=== PATIENT | female | born 1940 | race Caucasian/White ===

== ENCOUNTER → 2016-10-06 | Outpatient (CLI) | payer OTHER ==
[~2016-10-06] MED LIST: BUSP10 PO; DULE200A INH; IBUP-1116 PO; MUCI600T PO
== END ==
LOC: PLAB 10:54
PROVIDERS: ATTEND Internal Medicine
DX: J40 Bronchitis, not specified as acute or chronic (principal)
CPT/HCPCS: 87070; 87205

== ENCOUNTER 2017-06-19 11:54 | Emergency (ER) | payer MEDICARE, OTHER ==
[~2017-06-19] VITALS: Ht 160 cm; Wt 75.0 kg
[2017-06-19] MEDS ORDERED: IOHEXOL 350 MG/ML 10 ML VIAL (for RAD DIAG) IVCONTRAST ONE (11:55)
[2017-06-19 11:56] VITALS: BP 152/74; PULSE 98; RESP 15; TEMP 97.4; O2SAT 95
--- NOTE | 2017-06-19 12:33 | PD ---
HPI Chief Complaint: GI Complaint Time Seen by Provider: 12:32 Travel History International Travel<30 days: No Contact w/Intl Traveler<30days: No Traveled to known affect area: No History of Present Illness HPI 77-year-old female presents the emergency department with sudden onset lower abdominal cramping with bright red blood per rectum which started yesterday afternoon approximately 3 PM. Patient has had some loose stools since that time with cramping. Patient has no history of fever, nausea, or vomiting. She states she did have a large meal yesterday at 1:00 which consisted of Thanksgiving type food. Her ate the same food and is not ill. Patient has never had blood from her rectum before. She denies rectal pain. She denies history of diverticulitis or hemorrhoids. She states she's had blood on the tissue as well as in the bowl. Her abdominal cramping is central suprapubic region. Denies flank pain. He has no history of colitis or Crohn's disease. Patient does see a black off worker for every five-year colonoscopies for colon polyps but no history of cancer. Currently her pain is 5 out of 10. She has had approximately 4 bowel movements since yesterday at 3 PM. She has no known drug allergies. PFSH Past Medical History Asthma: Yes Diminished Hearing: No ?: Not Past Surgical History Appendectomy: Yes Cholecystectomy: Yes Tonsillectomy: Yes Social History Alcohol Use: No Tobacco Use: No Substance Use: No Allergies-Medications (Allergen,Severity, Reaction): Coded Allergies: No Known Allergies (Verified Adverse Reaction, Unknown, 06/19/17) Reported Meds & Prescriptions Reported Meds & Active Scripts Active Reported Mucinex DM (Dextromethorphan-Guaifenesin) 30-600 Mg Tab 1 Tab PO BID PRN Alprazolam 0.25 Mg Tab 0.25 Mg PO Q8H PRN Dulera 120 Act Inh (Mometasone-Formoterol 120 Act Inh) 100-5 Mcg/Act Inh 2 Puff INH BID Review of Systems Except as stated in HPI: all other systems reviewed are Neg General / Constitutional: No: Fever Eyes: No: Visual changes HENT: No: Headaches Cardiovascular: No: Chest Pain or Discomfort Respiratory: No: Shortness of Breath Gastrointestinal: Positive: Diarrhea, Abdominal Pain, No: Nausea, Vomiting, Hematemesis, Hematochezia, Constipation, Changes in Bowel Habits, Indigestion, Dysphagia, Loss of Appetite Genitourinary: Positive: Pelvic Pain, No: Dysuria Musculoskeletal: No: Pain Skin: No Rash Neurologic: No: Weakness Psychiatric: No: Depression Endocrine: No: Polydipsia Hematologic/Lymphatic: No: Easy Bruising Physical Exam Narrative GENERAL: Patient is anxious and appears in mild distress. SKIN: Warm and dry. Normal color. Normal turgor. HEAD: Atraumatic. Normocephalic. EYES: Pupils equal and round. No scleral icterus. No injection or drainage. ENT: No nasal bleeding or discharge. Mucous membranes pink and moist. NECK: Trachea midline. Supple and nontender CARDIOVASCULAR: Regular rate and rhythm. RESPIRATORY: No accessory muscle use. Clear to auscultation. Breath sounds equal bilaterally. GASTROINTESTINAL: Abdomen soft, nonspecific suprapubic tenderness without rebound, nondistended. No point tenderness or guarding. Hepatic and splenic margins not palpable. No CVA tenderness. RECTAL: Patient is noted to have a skin tag at 12 o'clock position without obvious active hemorrhoids or fissure. Internal rectal exam is not performed. MUSCULOSKELETAL: Extremities without clubbing, cyanosis, or edema. No obvious deformities. NEUROLOGICAL: Awake and alert. No obvious cranial nerve deficits. Motor grossly within normal limits. Five out of 5 muscle strength in the arms and legs. Normal speech. PSYCHIATRIC: Appropriate mood and affect; insight and judgment normal. Data Data Last Documented VS Vital Signs Date Time Temp Pulse Resp B/P (MAP) Pulse Ox O2 Delivery O2 Flow Rate FiO2 06/19/17 13:02 86 16 94 Room Air 06/19/17 11:56 97.4 Orders Orders Complete Blood Count With Diff (06/19/17 12:41) Comprehensive Metabolic Panel (06/19/17 12:41) Lipase (06/19/17 12:41) Lactic Acid (06/19/17 12:41) Prothrombin Time / Inr (Pt) (06/19/17 12:41) Act Partial Throm Time (Ptt) (06/19/17 12:41) Urinalysis - C+S If Indicated (06/19/17 12:41) Ct Abd/Pel W Iv Contrast(Rout) (06/19/17 12:41) Iv Access Insert/Monitor (06/19/17 12:41) Ecg Monitoring (06/19/17 12:41) Oximetry (06/19/17 12:41) NPO (06/19/17 12:41) Morphine Inj (Morphine Inj) (06/19/17 12:45) Ondansetron Inj (Zofran Inj) (06/19/17 12:45) Sodium Chlor 0.9% 1000 Ml Inj (Ns 1000 M (06/19/17 12:41) Sodium Chloride 0.9% Flush (Ns Flush) (06/19/17 12:45) Iohexol 350 Inj (Omnipaque 350 Inj) (06/19/17 11:55) Labs Laboratory Tests Test 06/19/17 12:45 06/19/17 13:00 White Blood Count 6.3 TH/MM3 Red Blood Count 4.69 MIL/MM3 Hemoglobin 15.0 GM/DL Hematocrit 44.8 % Mean Corpuscular Volume 95.5 FL Mean Corpuscular Hemoglobin 31.9 PG Mean Corpuscular Hemoglobin Concent 33.4 % Red Cell Distribution Width 13.3 % Platelet Count 323 TH/MM3 Mean Platelet Volume 8.3 FL Neutrophils (%) (Auto) 70.2 % Lymphocytes (%) (Auto) 20.4 % Monocytes (%) (Auto) 7.3 % Eosinophils (%) (Auto) 1.4 % Basophils (%) (Auto) 0.7 % Neutrophils # (Auto) 4.4 TH/MM3 Lymphocytes # (Auto) 1.3 TH/MM3 Monocytes # (Auto) 0.5 TH/MM3 Eosinophils # (Auto) 0.1 TH/MM3 Basophils # (Auto) 0.0 TH/MM3 CBC Comment DIFF FINAL Differential Comment Prothrombin Time 10.4 SEC Prothromb Time International Ratio 0.9 RATIO Activated Partial Thromboplast Time 28.4 SEC Blood Urea Nitrogen 8 MG/DL Creatinine 0.50 MG/DL Random Glucose 111 MG/DL Total Protein 7.7 GM/DL Albumin 3.5 GM/DL Calcium Level 9.0 MG/DL Alkaline Phosphatase 88 U/L Aspartate Amino Transf (AST/SGOT) 21 U/L Alanine Aminotransferase (ALT/SGPT) 34 U/L Total Bilirubin 0.2 MG/DL Sodium Level 141 MEQ/L Potassium Level 3.8 MEQ/L Chloride Level 105 MEQ/L Carbon Dioxide Level 29.7 MEQ/L Anion Gap 6 MEQ/L Estimat Glomerular Filtration Rate 120 ML/MIN Lipase 166 U/L Urine Color YELLOW Urine Turbidity CLEAR Urine pH 5.0 Urine Specific [place] 1.006 Urine Protein NEG mg/dL Urine Glucose (UA) NEG mg/dL Urine Ketones NEG mg/dL Urine Occult Blood NEG Urine Nitrite NEG Urine Bilirubin NEG Urine Urobilinogen LESS THAN 2.0 MG/DL Urine Leukocyte Esterase NEG Urine RBC 0-3 /hpf Urine WBC 0-2 /hpf Urine Squamous Epithelial Cells 0-5 /hpf Urine Bacteria OCC /hpf Microscopic Urinalysis Comment CULT NOT INDICATED Lactic Acid Level 1.2 mmol/L [facility] Medical Decision Making Medical Screen Exam Complete: Yes Emergency Medical Condition: Yes Differential Diagnosis Abdominal pain. Bright red blood per rectum. Possible colitis. Hemorrhoids. Urinary tract infection. Narrative Course Patient is medically stable at time of exam. Labs ordered including CBC, CMP, lactic acid, lipase, urinalysis. Patient is given 2 mg morphine IV as well as 4 mg Zofran IV. Patient is given 1000 mL normal saline bolus IV. CT of the abdomen and pelvis with IV contrast is ordered. CBC is unremarkable. Coagulation studies are unremarkable. Abdominal pelvic CT showed: CONCLUSION: 1. Mild diverticulosis with no definite inflammatory change or wall thickening. 2. Status post cholecystectomy. 3. Mild hepatic steatosis. Urinalysis is within normal limits. Patient is felt to have a viral colitis and possible hemorrhoid causing. Red blood per rectum. Patient is felt stable for discharge home with symptomatic treatment. Patient can follow up with the GI doctor as needed. Diagnosis Primary Impression: Abdominal pain Qualified Codes: R10.30 - Lower abdominal pain, unspecified Additional Impressions: Hemorrhoidal skin tags Diarrhea Qualified Codes: R19.7 - Diarrhea, unspecified Referrals: Rehabilitation Services Manager Primary Care Physician Patient Instructions: Abdominal Pain (ED), Acute Diarrhea (ED), General Instructions, Hemorrhoids (ED) Additional Instructions: Patient is felt to have a viral colitis and possible hemorrhoid causing. Red blood per rectum. Patient is felt stable for discharge home with symptomatic treatment. Patient can follow up with the GI doctor as needed. Med/Other Pt SpecificInfo: No Meds Exist/No RX given Disposition: DISCHARGE HOME Condition: Stable Abdiaziz Hardin Jun 19, 2017 12:33
[2017-06-19] MEDS ORDERED: SODIUM CHLOR 0.9% 1000 ML INJ 1,000 ML IV SCH (12:41)
[2017-06-19] MEDS ORDERED: SODIUM CHLORIDE 0.9% FLUSH 10 ML FLUSH IV FLUSH PRN (12:45)
[2017-06-19] MEDS ORDERED: MORPHINE SULFATE 4 MG/ML INJ IV PUSH ONE (12:45)
[2017-06-19] MEDS ORDERED: ONDANSETRON HCL 4 MG/2 ML VIAL IVP ONE (12:45)
[2017-06-19] MEDS ORDERED: DULE100A INH (13:00)
[2017-06-19] MEDS ORDERED: HUMIBIDDM PO (13:00)
[2017-06-19] MEDS ORDERED: ALPR0.25 PO (13:00)
[2017-06-19 13:02] VITALS: PULSE 86; RESP 16; O2SAT 94
[2017-06-19 13:15] LABS: AUTOMATED NEUTROPHIL # 4.4 TH/MM3 (1.8-7.7); BASOPHIL % 0.7 % (0.0-2.0); EOSINOPHIL # 0.1 TH/MM3 (0-0.4); EOSINOPHIL % 1.4 % (0.0-4.0); HEMATOCRIT 44.8 % (35.0-46.0); HEMO FLAGS DIFF FINAL; LYMPH % 20.4 % (9.0-44.0); LYMPHOCYTE # 1.3 TH/MM3 (1.0-4.8); MEAN CELL VOLUME 95.5 FL (80.0-100.0); MEAN CORPUSCULAR HEMOGLOBIN 31.9 PG (27.0-34.0); MEAN CORPUSCULAR HGB CONC 33.4 % (32.0-36.0); MONO % 7.3 % (0.0-8.0); NEUT % 70.2 % (16.0-70.0); PLATELET COUNT 323 TH/MM3 (150-450); RED BLOOD COUNT 4.69 MIL/MM3 (4.00-5.30); RED CELL DISTRIBUTION WIDTH 13.3 % (11.6-17.2); WHITE BLOOD COUNT 6.3 TH/MM3 (4.0-11.0)
[2017-06-19 13:22] LABS: APTT (PATIENT) 28.4 SEC (24.3-30.1); INTERNATIONAL NORMALIZED RATIO 0.9 RATIO; PROTHROMBIN TIME - PATIENT 10.4 SEC (9.8-11.6)
[2017-06-19 13:46] LABS: ALT (GPT) 34 U/L (10-53); ANION GAP 6 MEQ/L (5-15); AST (GOT) 21 U/L (15-37); BICARBONATE 29.7 MEQ/L (21.0-32.0); BLOOD UREA NITROGEN 8 MG/DL (7-18); CHLORIDE 105 MEQ/L (98-107); GLOMERULAR FILTRATION RATE 120 ML/MIN (>89); POTASSIUM 3.8 MEQ/L (3.5-5.1); SODIUM (NA) 141 MEQ/L (136-145)
[2017-06-19 13:48] LABS: ALKALINE PHOSPHATASE 88 U/L (45-117); TOTAL BILIRUBIN ADULT 0.2 MG/DL (0.2-1.0)
[2017-06-19 14:09] LABS: BLOOD, URINE NEG (NEG); GLUCOSE,URINE NEG (NEG); KETONE, URINE NEG (NEG); NITRITE,URINE NEG (NEG); URINE COLOR YELLOW (YELLW/STRAW)
--- NOTE | 2017-06-19 14:41 | RADRPT ---
EXAM DATE/TIME: 06/19/2017 14:14 [facility] COMPARISON: No previous studies available for comparison. INDICATIONS : Lower abdominal pain and rectal bleeding. IV CONTRAST: 91 cc Omnipaque 350 (iohexol) IV ORAL CONTRAST: No oral contrast ingested. RADIATION DOSE: 8.83 CTDIvol (mGy) MEDICAL HISTORY : Asthma. SURGICAL HISTORY : Appendectomy. Cholecystectomy. ENCOUNTER: Initial ACUITY: 1 day PAIN SCALE: 5/10 LOCATION: Bilateral lower quadrant TECHNIQUE: Volumetric scanning of the abdomen and pelvis was performed. Using automated exposure control and ad justment of the mA and/or kV according to patient size, radiation dose was kept as low as reasonably achievable to obtain optimal diagnostic quality images. DICOM format image data is available electro nically for review and comparison. FINDINGS: LOWER LUNGS: The visualized lower lungs are clear. LIVER: Homogeneous density without lesion. There is mild hepatic steatosis. There is no dilation of the bili manjula tree. Status post cholecystectomy. SPLEEN: Normal size without lesion. PANCREAS: Within normal limits. KIDNEYS: Normal in size and shape. There is no mass, stone or hydronephrosis. ADRENAL GLANDS: Within normal limits. VASCULAR: There is no aortic aneurysm. BOWEL/MESENTERY: No oral contrast was given limiting the sensitivity. There are multiple diverticuli greatest in the s igmoid colon with no definite wall thickening or inflammatory change. The stomach, small bowel, and c olon demonstrate no acute abnormality. There is no free intraperitoneal air or fluid. ABDOMINAL WALL: Within normal limits. RETROPERITONEUM: There is no lymphadenopathy. BLADDER: No wall thickening or mass. REPRODUCTIVE: Within normal limits. INGUINAL: There is no lymphadenopathy or hernia. MUSCULOSKELETAL: Within normal limits for patient age. CONCLUSION: 1. Mild diverticulosis with no definite inflammatory change or wall thickening. 2. Status post cholecystectomy. 3. Mild hepatic steatosis. Tariq Martinez MD on June 19, 2017 at 14:36 Board Certified Radiologist. This report was verified electronically.
[2017-06-19 14:42] LABS: BACTERIA, URINE OCC /hpf; COMMENT (UR) CULT NOT INDICATED; CULTURE IF INDICATED CULT NOT INDICATED; RBC, URINE 0-3 /hpf (0-3); SQUAMOUS EPITHELIAL CELL URINE 0-5 /hpf (0-5); WBC, URINE 0-2 /hpf (0-5)
== END 2017-06-19 15:35 | disposition home or self-care (01) ==
LOC: NEPE 11:54
DX: R10.30 Lower abdominal pain, unspecified (principal); K64.4 Residual hemorrhoidal skin tags; R19.7 Diarrhea, unspecified
CPT/HCPCS: 74177; 80053; 81001; 83605; 83690; 85025; 85610; 85730; 96361; 96374; 96375; 99285; J2270; J2405; J7030; Q9967